=== PATIENT | female | born 1955 | race Caucasian/White ===

== ENCOUNTER 2022-12-20 04:30 | Inpatient (IN) | payer MEDICARE, OTHER ==
--- NOTE | 2022-12-20 04:43 | ED ---
General Adult HPI - General Stated complaint: Chest Pain Time Seen by Provider: 12/20/22 04:37 - History of Present Illness Initial comments: Dictation was produced using [employer] dictation software. please excuse any grammatical, word or spelling errors. Chief Complaint: 67-year-old male presents emergency by with chest and shoulder pain History of Present Illness: 59-year-old female presents emergency department with chest pressure and shoulder pain. States it feels he gets more shoulder radiates to her chest. She states as a dull ache. States it is her associated with clamminess. Denies any cardiac history. She does report cardiac history in her family. No associated shortness of breath. Patient does have history of tobacco use. Arrived via EMS. The ROS documented in this emergency department record has been reviewed and confirmed by me. Those systems with pertinent positive or negative responses have been documented in the HPI. All other systems are other negative and/or noncontributory. - Related Data Allergies Allergy/AdvReac Type Severity Reaction Status Date / Time No Known Allergies Allergy Verified 12/20/22 04:57 Review of Systems ROS Statement: Those systems with pertinent positive or pertinent negative responses have been documented in the HPI. ROS Other: All systems not noted in ROS Statement are negative. General Exam - General Exam Comments Initial Comments: PHYSICAL EXAM: General Impression: Alert and oriented x3, not in acute distress HEENT: Normocephalic atraumatic, extra-ocular movements intact, pupils equal and reactive to light bilaterally, mucous membranes moist. Cardiovascular: Heart regular rate and rhythm Chest: Able to complete full sentences, no retractions, no tachypnea Abdomen: abdomen soft, non-tender, non-distended, no organomegaly Musculoskeletal: Pulses present and equal in all extremities, no peripheral edema Motor: no focal deficits noted Neurological: CN II-XII grossly intact, no focal motor or sensory deficits noted Skin: Intact with no visualized rashes Psych: Normal affect and mood Course Vital Signs 12/20/22 04:34 Temperature 97.8 F Pulse Rate 107 H Respiratory 20 Rate Blood Pressure 128/93 O2 Sat by Pulse 95 Oximetry - Reevaluation(s) Reevaluation #1: 12/20/22 05:04 Clinical presentation and EKG suspicious for myocardial infarction. EKG was reviewed by on-call cardiology, Dr. Tubbs who is agreeable with Manager Image activation. EKG Findings - EKG Comments: EKG Findings:: My EKG interpretation: Ventricular rate 105, sinus tachycardia,. 162, QRS 144, QTc 382. No AR prolongation, no QTC prolongation. No old EKG for comparison. There does appear to be [place] and ST elevations in lead 3 and aVF. EKG is suspicious for ST segment elevation in my in the setting of widened QRS Medical Decision Making - Medical Decision Making Was pt. sent in by a medical professional or institution ([facility] [employer], urgent care, hospital, or detention...) When possible be specific @ -No Did you speak to anyone other than the patient for history (EMS, parent, family, police, friend...)? What history was obtained from this source @ -EMS Did you review nursing and triage notes (agree or disagree)? Why? @ -I reviewed and agree with nursing and triage notes Were old charts reviewed (outside hosp., previous admission, EMS record, old EKG, old radiological studies, urgent care reports/EKG's, detention records)? Report findings @ -No old charts were reviewed Differential Diagnosis (chest pain, altered mental status, abdominal pain women, abdominal pain men, vaginal bleeding, musculoskeletal, weakness, fever, dyspnea, syncope, headache, dizziness, GI bleed, back pain, seizure, CVA, palpatations, mental health)? @ -Differential Chest Pain: Stable Angina, Unstable Angina, STEMI, NSTEMI Aortic Dissection, Pneumothorax, Musculoskeletal, Esophageal Spasm GERD, Cholecystitis, Pancreatitis, Zoster, this is not meant to be an all-inclusive list. EKG interpreted by me (3pts min.). @ -See above X-rays interpreted by me (1pt min.). @ -no acute processes CT interpreted by me (1pt min.). @ -None done U/S interpreted by me (1pt. min.). @ -None done What testing was considered but not performed or refused? (CT, X-rays, U/S, labs)? Why? @ -None What meds were considered but not given or refused? Why? @ -None Did you discuss the management of the patient with other professionals (professionals i.e. [facility] [employer], lab, RT, psych nurse, social studies teacher, lead database administrator, teacher, optics technical officer, rn case management)? Give summary @ -EKG was discussed with on-call cardiology as described above Was smoking cessation discussed for >3mins.? @ -No Was critical care preformed (if so, how long)? @ -yes, 33 minutes Were there social determinants of health that impacted care today? How? (Homelessness, low income, unemployed, alcoholism, drug addiction, transportation, low edu. Level, literacy, decrease access to med. care, retirement, rehab)? @ -No Was there de-escalation of care discussed even if they declined (Discuss DNR or withdrawal of care, Hospice)? DNR status @ -No What co-morbidities impacted this encounter? (DM, HTN, Smoking, COPD, CAD, Cancer, CVA, ARF, Chemo, Hep., AIDS, mental health diagnosis, sleep apnea, morbid obesity)? @ -None Was patient admitted / discharged? Hospital course, mention meds given and route, prescriptions, significant lab abnormalities, going to OR and other pertinent info. @ -67-year-old female presents to the emergency department for chest pain. Vital signs upon arrival shows mild tachycardia. Glucose presentation consistent with ST segment elevation MS. EKG was discussed with cardiology. 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 She is given aspirin and heparin. Undiagnosed new problem with uncertain prognosis? @ -No Drug Therapy requiring intensive monitoring for toxicity (Heparin, Nitro, Insulin, Cardizem)? @ -No Were any procedures done? @ -No Diagnosis/symptom? Acute, or Chronic, or Acute on Chronic? Uncomplicated (without systemic symptoms) or Complicated (systemic symptoms)? @ -1. Chest pain Side effects of treatment? @ -No Exacerbation, Progression, or Severe Exacerbation? @ -No Poses a threat to life or bodily function? How? (Chest pain, USA, MS, pneumonia, PE, COPD, DKA, ARF, appy, cholecystitis, CVA, Diverticulitis, Homicidal, Suicidal, threat to staff... and all critical care pts) @ -yes - Lab Data Result diagrams: 12/20/22 04:56 12/20/22 04:56 Lab Results 12/20/22 12/20/22 12/20/22 Range/Units 04:56 04:56 04:56 WBC 9.9 (3.8-10.6) k/uL RBC 5.56 H (3.80-5.40) m/uL Hgb 15.3 (11.4-16.0) gm/dL Hct 48.3 H (34.0-46.0) % MCV 86.9 (80.0-100.0) fL MCH 27.5 (25.0-35.0) pg MCHC 31.6 (31.0-37.0) g/dL RDW 14.5 (11.5-15.5) % Plt Count 266 (150-450) k/uL MPV 7.9 Neutrophils % 84 % Lymphocytes % 10 % Monocytes % 4 % Eosinophils % 2 % Basophils % 0 % Neutrophils # 8.3 H (1.3-7.7) k/uL Lymphocytes # 1.0 (1.0-4.8) k/uL Monocytes # 0.4 (0-1.0) k/uL Eosinophils # 0.2 (0-0.7) k/uL Basophils # 0.0 (0-0.2) k/uL PT 9.9 (9.0-12.0) sec INR 0.9 (<1.2) APTT 22.6 (22.0-30.0) sec Sodium 137 (137-145) mmol/L Potassium 4.4 (3.5-5.1) mmol/L Chloride 105 (98-107) mmol/L Carbon Dioxide 20 L (22-30) mmol/L Anion Gap 12 mmol/L BUN 15 (7-17) mg/dL Creatinine 1.09 H (0.52-1.04) mg/dL Est GFR (CKD-EPI)AfAm 61 (>60 ml/min/1.73 sqM) Est GFR (CKD-EPI)NonAf 53 (>60 ml/min/1.73 sqM) Glucose 191 H (74-99) mg/dL POC Glucose (mg/dL) (70-110) mg/dL POC Glu Auto Detailer ID Calcium 9.3 (8.4-10.2) mg/dL Magnesium 1.8 (1.6-2.3) mg/dL Total Bilirubin 0.7 (0.2-1.3) mg/dL AST 24 (14-36) U/L ALT 17 (4-34) U/L Alkaline Phosphatase 103 (38-126) U/L Troponin I (0.000-0.034) ng/mL Total Protein 7.3 (6.3-8.2) g/dL Albumin 4.4 (3.5-5.0) g/dL Lipase 70 (23-300) U/L 12/20/22 12/20/22 Range/Units 04:56 05:00 WBC (3.8-10.6) k/uL RBC (3.80-5.40) m/uL Hgb (11.4-16.0) gm/dL Hct (34.0-46.0) % MCV (80.0-100.0) fL MCH (25.0-35.0) pg MCHC (31.0-37.0) g/dL RDW (11.5-15.5) % Plt Count (150-450) k/uL MPV Neutrophils % % Lymphocytes % % Monocytes % % Eosinophils % % Basophils % % Neutrophils # (1.3-7.7) k/uL Lymphocytes # (1.0-4.8) k/uL Monocytes # (0-1.0) k/uL Eosinophils # (0-0.7) k/uL Basophils # (0-0.2) k/uL PT (9.0-12.0) sec INR (<1.2) APTT (22.0-30.0) sec Sodium (137-145) mmol/L Potassium (3.5-5.1) mmol/L Chloride (98-107) mmol/L Carbon Dioxide (22-30) mmol/L Anion Gap mmol/L BUN (7-17) mg/dL Creatinine (0.52-1.04) mg/dL Est GFR (CKD-EPI)AfAm (>60 ml/min/1.73 sqM) Est GFR (CKD-EPI)NonAf (>60 ml/min/1.73 sqM) Glucose (74-99) mg/dL POC Glucose (mg/dL) 165 H (70-110) mg/dL POC Glu Auto Detailer ID Chandler Reina Calcium (8.4-10.2) mg/dL Magnesium (1.6-2.3) mg/dL Total Bilirubin (0.2-1.3) mg/dL AST (14-36) U/L ALT (4-34) U/L Alkaline Phosphatase (38-126) U/L Troponin I 0.156 H* (0.000-0.034) ng/mL Total Protein (6.3-8.2) g/dL Albumin (3.5-5.0) g/dL Lipase (23-300) U/L Disposition Clinical Impression: ST elevation myocardial infarction (STEMI) Disposition: ADMITTED IP TO THIS HOSP Condition: Critical Referrals: Attila Guzman Jr, [Primary Care Provider] - 1-2 days Decision Time: 05:53
[2022-12-20] MEDS ORDERED: ASPIRIN 81 MG PO STA (04:56)
[2022-12-20] MEDS ORDERED: HEPARIN SODIUM 1,000 UN/ML (10ML VL) IV PRN (04:56)
[2022-12-20] MEDS ORDERED: HEPARIN SODIUM 1,000 UN/ML (10ML VL) IV ONE (04:56)
[2022-12-20] MEDS ORDERED: HEPARIN SOD,PORK IN 0.45% NACL 25,000 UNIT in 0.45% NACL 1 250ML.BAG IV SCH (05:00)
[2022-12-20 05:02] LABS: Glucose,Whole Blood 165 mg/dL (70-110)
[2022-12-20 05:08] LABS: Basophils % (A) 0 %; Eosinophils # (A) 0.2 k/uL (0-0.7); Eosinophils % (A) 2 %; HCT 48.3 % (34.0-46.0); HGB 15.3 gm/dL (11.4-16.0); Lymphocytes % (A) 10 %; MCH 27.5 pg (25.0-35.0); MCHC 31.6 g/dL (31.0-37.0); MCV 86.9 fL (80.0-100.0); Mean Platelet Volume 7.9; Monocytes # (A) 0.4 k/uL (0-1.0); Monocytes % (A) 4 %; Neutrophils # (A) 8.3 k/uL (1.3-7.7); Neutrophils % (A) 84 %; Platelet Count 266 k/uL (150-450); RBC 5.56 m/uL (3.80-5.40); RDW 14.5 % (11.5-15.5); WBC 9.9 k/uL (3.8-10.6)
[2022-12-20 05:19] LABS: ALT 17 U/L (4-34); AST 24 U/L (14-36); African American GFR (CKD) 61 (>60 ml/min/1.73 sqM); Albumin 4.4 g/dL (3.5-5.0); Alkaline Phosphatase 103 U/L (38-126); Anion Gap 12 mmol/L; Blood Urea Nitrogen 15 mg/dL (7-17); Calcium 9.3 mg/dL (8.4-10.2); Carbon Dioxide 20 mmol/L (22-30); Chloride 105 mmol/L (98-107); Glucose 191 mg/dL (74-99); Lipase 70 U/L (23-300); Magnesium 1.8 mg/dL (1.6-2.3); Non-African American GFR(CKD) 53 (>60 ml/min/1.73 sqM); Potassium 4.4 mmol/L (3.5-5.1); Sodium 137 mmol/L (137-145); Total Bilirubin 0.7 mg/dL (0.2-1.3); Total Protein 7.3 g/dL (6.3-8.2)
[2022-12-20 05:22] LABS: INR 0.9 (<1.2); Partial Thromboplastin Time 22.6 sec (22.0-30.0); Prothrombin Time 9.9 sec (9.0-12.0)
[2022-12-20] MEDS ORDERED: fentaNYL (PF) 50 MCG/ML 2 ML AMP ONE (05:39)
[2022-12-20] MEDS ORDERED: VERAPAMIL 2.5 MG/ML 2 ML AMP ONE (05:39)
[2022-12-20] MEDS ORDERED: HEPARIN SODIUM 1,000 UN/ML (10ML VL) ONE (05:39)
[2022-12-20] MEDS ORDERED: fentaNYL (PF) 50 MCG/1 ML VIAL IVP ONE (05:47)
[2022-12-20] MEDS ORDERED: NALOXONE 0.4 MG/ML 1 ML VIAL IV PRN (05:48)
[2022-12-20] MEDS ORDERED: LIDOCAINE 1% INJ 10MG/ML (5 ML VIAL-PF) SQ ONE (05:49)
[2022-12-20] MEDS ORDERED: VERAPAMIL SYRINGE (5 MG/10 ML) INTRAARTER ONE (05:50)
[2022-12-20] MEDS ORDERED: MIDAZOLAM 2 MG/2 ML VIAL IVP ONE (05:53)
[2022-12-20] MEDS ORDERED: SODIUM CHLORIDE 0.9% 1,000 ML IV ONE (05:54)
[2022-12-20] MEDS: HEPARIN SODIUM 1,000 UN/ML (10ML VL) IV ONE ×2 (05:55→06:34)
[2022-12-20] MEDS ORDERED: HYDROmorphone 0.5 MG/0.5 ML SYRINGE IVP ONE (05:58)
[2022-12-20] MEDS ORDERED: PRASUGREL 10 MG TAB ONE (06:03)
[2022-12-20] MEDS ORDERED: PRASUGREL 10 MG TAB PO ONE (06:05)
[2022-12-20] MEDS ORDERED: IOPAMIDOL-370 100ML BTL INJ ONE ×2 (06:18→06:24)
[2022-12-20] MEDS ORDERED: RX INFO: IV CONTRAST WAS GIVEN 1 EACH MISC MISCELLANE PRN (06:41)
[2022-12-20] MEDS ORDERED: ATROPINE SULFATE 0.1 MG/ML 10ML SYRINGE IV PRN (06:41)
[2022-12-20] MEDS ORDERED: MAG HYDROX/AL HYDROX/SIMETH 30 ML CUP PO PRN (06:41)
[2022-12-20] MEDS ORDERED: ZOLPIDEM 5 MG TAB PO PRN (06:41)
[2022-12-20] MEDS ORDERED: NITROGLYCERIN SL TABS 0.4 MG TAB SUBLINGUAL PRN (06:41)
[2022-12-20] MEDS ORDERED: SODIUM CHLORIDE 0.9% 1,000 ML in EMPTY BAG 1 BAG IV SCH (06:45)
--- NOTE | 2022-12-20 06:50 | P.CRDCN ---
History of Present Illness Consult date: 12/20/22 History of present illness: History of Present Illness: The patient is a 67-year-old female who presents to the emergency room with left shoulder discomfort with radiation to the chest, and nausea. Her symptoms started at 6:00 PM yesterday and persisted throughout the night. In the emergency room she was noted to have left bundle branch block of unknown duration. No old EKG was available. Patient has been having shoulder discomfort on and off for a few weeks according to her, not activity related. She is not active physically. She has a history of hypertension and chronic tobacco use and recently has been complaining for cough from lisinopril. She denies any prior history of myocardial infarction or congestive heart failure. She has no history of PND, orthopnea or peripheral edema. She denies any dizziness, palpitations or syncope. She has no recent cardiac workup. Medications: Lisinopril, metoprolol 50 mg daily Review of Systems: Respiratory: She has a history of dyspnea and chronic tobacco use GI: She had the nausea today but not on a regular basis : No hematuria or dysuria. Nervous System: No stroke or seizure. Physical Examination: 67-year-old female, alert and oriented obese, evaluated in the cardiac catheterization laboratory,Blood pressure 160/100, Heart rate 112 Head: Normocephalic. Eyes: Sclerae nonicteric. Neck: Good carotid upstroke, no bruit, no jugular venous distention. Lungs: Clear to auscultation. Heart: Regular rate and rhythm, S1-S2, no S3, no rub. Systolic ejection murmur. Abdomen: Soft nontender, positive bowel sounds no organomegaly. Extremities: No edema, intact distal pulses. Labs: Hemoglobin 15.3, BUN 15, creatinine 1.09, potassium 4.4, troponin 0.156 EKG: Sinus mechanism with left bundle branch block Impression: 1. Acute left shoulder discomfort with left bundle branch block of unknown duration with mild troponin elevation insistent with non-STEMI 2. Chronic tobacco use 3. Hypertension 4. And obesity Plan: 1. Proceed with emergent cardiac catheterization, the risks and the complications were discussed with the patient 2. Obtain an echocardiogram with Doppler 3. Depending on her progress and the results of the testing further recommendations will be made 4. The procedure as well as the risks and the complications were discussed with the patient 5. Thank you for this consult we will follow with you Past Medical History Past Medical History: Hypertension Additional Past Medical History / Comment(s): hypothyroid disorder History of Any Multi-Drug Resistant Organisms: None Reported Past Surgical History: No Surgical Hx Reported Past Psychological History: Anxiety, Depression Smoking Status: Current every day smoker Past Alcohol Use History: Occasional Past Drug Use History: None Reported Medications and Allergies Allergies Allergy/AdvReac Type Severity Reaction Status Date / Time No Known Allergies Allergy Verified 12/20/22 04:57 Physical Exam Vitals: Vital Signs Temp Pulse Resp BP Pulse Ox 12/20/22 05:19 107 H 20 133/89 98 12/20/22 05:13 112 H 20 160/107 97 12/20/22 05:08 110 H 20 115/95 99 12/20/22 05:02 117 H 20 120/94 98 12/20/22 04:34 97.8 F 107 H 20 128/93 95 Intake and Output 12/19/22 12/19/22 12/20/22 14:59 22:59 06:59 Intake Total 350 Balance 350 Intake: IV 350 Other: Weight 102.058 kg Results 12/20/22 04:56 12/20/22 04:56 Cardiac Enzymes 12/20/22 12/20/22 Range/Units 04:56 04:56 AST 24 (14-36) U/L Troponin I 0.156 H* (0.000-0.034) ng/mL Coagulation 12/20/22 Range/Units 04:56 PT 9.9 (9.0-12.0) sec APTT 22.6 (22.0-30.0) sec CBC 12/20/22 Range/Units 04:56 WBC 9.9 (3.8-10.6) k/uL RBC 5.56 H (3.80-5.40) m/uL Hgb 15.3 (11.4-16.0) gm/dL Hct 48.3 H (34.0-46.0) % Plt Count 266 (150-450) k/uL Comprehensive Metabolic Panel 12/20/22 Range/Units 04:56 Sodium 137 (137-145) mmol/L Potassium 4.4 (3.5-5.1) mmol/L Chloride 105 (98-107) mmol/L Carbon Dioxide 20 L (22-30) mmol/L BUN 15 (7-17) mg/dL Creatinine 1.09 H (0.52-1.04) mg/dL Glucose 191 H (74-99) mg/dL Calcium 9.3 (8.4-10.2) mg/dL AST 24 (14-36) U/L ALT 17 (4-34) U/L Alkaline Phosphatase 103 (38-126) U/L Total Protein 7.3 (6.3-8.2) g/dL Albumin 4.4 (3.5-5.0) g/dL Current Medications Generic Name Dose Route Start Last Admin Trade Name Freq PRN Reason Stop Dose Admin Al Hydroxide/Mg Hydroxide 30 ml 12/20/22 06:41 Mag Hydrox/Al Hydrox/Simeth 30 Ml Cup PO Q4HR PRN Heartburn Aspirin 81 mg 12/20/22 09:00 Aspirin 81 Mg PO DAILY YANCY Atorvastatin Calcium 80 mg 12/20/22 21:00 Atorvastatin 80 Mg Tab PO HS YANCY Atropine Sulfate 0.5 mg 12/20/22 06:41 Atropine Sulfate 0.1 Mg/Ml 10ml Syringe IV ONCE PRN Symptomatic Bradycardia Dapagliflozin 10 mg 12/20/22 09:00 Dapagliflozin Propanediol 10 Mg Tablet PO DAILY [facility]1983 Heparin Sodium (Porcine) 0 unit 12/20/22 04:56 Heparin Sodium 1,000 Un/Ml (10ml Vl) IV PER PROTOCOL PRN Low PTT Protocol Heparin Sodium/Sodium Chloride 250 mls @ 10.002 mls/hr 12/20/22 05:00 12/20/22 05:01 25,000 unit/ Sodium Chloride IV 12 units/kg/hr .Q24H YANCY 12.247 mls/hr Administration Protocol 9.8 UNITS/KG/HR Sodium Chloride 1,000 ml/ IV 1,000 mls @ 102.058 mls/hr 12/20/22 06:45 Solution IV 12/20/22 09:46 .Q9H48M YANCY 1 ML/KG/HR Losartan Potassium 50 mg 12/20/22 09:00 Losartan 50 Mg Tab PO DAILY [facility]1983 Metoprolol Tartrate 25 mg 12/20/22 09:00 Metoprolol Tartrate 25 Mg Tab PO BID [facility]1983 Miscellaneous Information 1 each 12/20/22 06:41 Rx Info: Iv Contrast Was Given 1 Each Misc MISCELLANE 12/22/22 06:42 DAILY PRN Per Protocol Naloxone HCl 0.2 mg 12/20/22 05:48 Naloxone 0.4 Mg/Ml 1 Ml Vial IV Q2M PRN Opioid Reversal Nitroglycerin 0.4 mg 12/20/22 06:41 Nitroglycerin Sl Tabs 0.4 Mg Tab SUBLINGUAL Q5M PRN Chest Pain Prasugrel 10 mg 12/21/22 09:00 Prasugrel 10 Mg Tab PO DAILY [facility] Protocol Spironolactone 25 mg 12/20/22 09:00 Spironolactone 25 Mg Tab PO DAILY [facility] Zolpidem Tartrate 5 mg 12/20/22 06:41 Zolpidem 5 Mg Tab PO HS PRN Insomnia Intake and Output 12/19/22 12/19/22 12/20/22 14:59 22:59 06:59 Intake Total 350 Balance 350 Intake: IV 350 Other: Weight 102.058 kg Patient Weight 12/20/22 06:59 Weight 102.058 kg 12/20/22 04:56 12/20/22 04:56
--- NOTE | 2022-12-20 06:59 | P.CARDCATH ---
Date of Procedure: 12/20/22 Description of Procedure: Cardiac Catheterization: The patient is a 67-year-old female with a history of chronic tobacco use and hypertension who presented with symptoms of shoulder discomfort with left bundle branch block of unknown duration. She had mild troponin elevation. Recommendations were made regarding cardiac catheterization, the risks and the complications were discussed with the patient who is in full understanding and agreement. 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 Using Xylocaine Anesthesia and Seldinger technique, a 6-Rwandan sheath was introduced in the right radial artery . Subsequently, selective coronary angiography was performed using a 5-Rwandan 3.5 bend Gio catheter. Multiple views of the coronary artery including hemiaxial views were obtained. The 5-Rwandan pigtail catheter was used to cross the aortic valve and LVEDP was calculated. PCI: After removing the catheters a 6-[place]an EBU 3.75 guiding catheter was introduced into system, after cannulating the left main a 0.014 BMW J-wire was positioned in the distal LAD subsequently a 2.5 x 12 mm Treck was advanced into inflation at 8 nolan were done, after removing the balloon a Spinelab [place] eye intravascular ultrasound catheter was introduced and images were obtained, subsequently a 3.0 x 38 mm Xience erlinda point stent was advanced and deployed at 16 nolan. After removing the balloon and the wire images were obtained and revealed stable successful stenting. Following that, catheter and sheath were removed. Hemostasis was obtained with deployment of TR band . There was no immediate complication. Patient was returned to room in stable condition. Of note, the patient received a total of 6000 units of intravenous heparin as well as intra- arterial verapamil. Her ACT was followed. She received a loading dose of oral Effient. Her shoulder discomfort improved the end of the procedure. Findings: Left main: This is a large size vessel, bifurcating into LAD and left circumflex, the distal left main has 20% plaque LAD: This is a large-size vessel, reaching to the apex, the proximal LAD has a long tubular lesion with stenosis up to 95%, the mid LAD has a 50%, the rest of the vessel has no high-grade stenosis Left circumflex: This is a nondominant vessel, giving rise to a large obtuse marginal branch, the left circumflex is diffusely diseased with an area of stenosis up to 30% RCA: This is a dominant vessel, moderate in caliber diffusely diseased in the proximal and midsegment. The distal segment prior to the bifurcation has 90% stenosis and subsequently the vessel is totally occluded. Collaterals there is collaterals from the LAD system to the right PDA Left Ventriculogram: Not performed Hemodynamics: There was no gradient across the aortic valve, LVEDP was 26-30 mmHg Conclusion: 1. 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 Critical stenosis in the proximal LAD in a long segment 3. Mild to moderate disease in the left circumflex 4. Collaterals to the right PDA 5. Successful stenting of the proximal LAD with reduction of stenosis from 95% to 0% with intravascular ultrasound imaging Recommendations: The patient will continue on aspirin and Effient for 1 year with no interruption, aggressive coronary risks modification will be initiated in addition to guideline treatment. Depending on her symptoms the decision would be made regarding the need to undergo revascularization of the chronically occluded RCA. The findings and the recommendations were discussed with the patient and the family and they were in full understanding and agreement. Duration of sedation is 40 minutes.
--- NOTE | 2022-12-20 07:09 | XR ---
EXAMINATION TYPE: XR chest 1V portable DATE OF EXAM: 12/20/2022 5:07 AM COMPARISON: None TECHNIQUE: XR chest 1V portable Frontal view of the chest. CLINICAL INDICATION:Female, 67 years old with history of Chest Pain; FINDINGS: Lungs/Pleura: There is no evidence of pleural effusion, focal consolidation, or pneumothorax. Pulmonary vascularity: Pulmonary vascular congestion. Heart/mediastinum: Cardiomediastinal silhouette is enlarged and stable. Musculoskeletal: No acute osseous pathology. IMPRESSION: Cardiomegaly and mild pulmonary vascular congestion. Correlate with BNP for congestive heart failure.
[2022-12-20] MEDS: ONDANSETRON 4 MG/2 ML VIAL IVP PRN ×2 (07:22→12:10)
--- NOTE | 2022-12-20 08:15 | P.PN ---
Subjective Progress Note Date: 12/20/22 Principal diagnosis: Acute coronary syndrome The patient is a 67-year-old female patient was admitted to the hospital with acute coronary syndrome presented as a chest discomfort and EKG showing new LBBB. She underwent an emergent heart catheterization and was found to have chr onic total occlusion of the RCA and severe disease involving the LAD which was stented. 12/20/2022 The patient was seen and evaluated this morning. She is chest pain-free. She is slightly tachycardic. She is on dual antiplatelet therapy along with high intensity statin along with anti-ischemic medication. The echocardiogram just performed with following that to assess ejection fraction. Meanwhile the right radial site appeared to be soft and nontender. The examination is remarkable for stable vital signs was mild sinus tachycardia and diminished breathing sounds bilaterally and no lower extremity edema noted Assessment Acute coronary syndrome Status post PCI of the LAD Multiple comorbid conditions Mild sinus tachycardia Plan DC IV fluid Restart the patient back on her blood pressure medications including the current dose of losartan and beta matt Continue dual antiplatelet therapy Continue high intensity statin Follow-up on the echocardiogram Objective - Vital Signs Vital signs: Vital Signs Temp 97.8 F 12/20/22 04:34 Pulse 107 H 12/20/22 05:19 Resp 20 12/20/22 05:19 BP 133/89 12/20/22 05:19 Pulse Ox 98 12/20/22 05:19 FiO2 Intake & Output 12/19/22 12/20/22 12/20/22 18:59 06:59 18:59 Intake Total 350 Balance 350 Weight 102.058 kg Intake: IV 350 - Labs CBC & Chem 7: 12/20/22 04:56 12/20/22 04:56 Labs: Abnormal Lab Results - Last 24 Hours (Table) 12/20/22 12/20/22 12/20/22 Range/Units 04:56 04:56 04:56 RBC 5.56 H (3.80-5.40) m/uL Hct 48.3 H (34.0-46.0) % Neutrophils # 8.3 H (1.3-7.7) k/uL Carbon Dioxide 20 L (22-30) mmol/L Creatinine 1.09 H (0.52-1.04) mg/dL Glucose 191 H (74-99) mg/dL POC Glucose (mg/dL) (70-110) mg/dL Troponin I 0.156 H* (0.000-0.034) ng/mL 12/20/22 Range/Units 05:00 RBC (3.80-5.40) m/uL Hct (34.0-46.0) % Neutrophils # (1.3-7.7) k/uL Carbon Dioxide (22-30) mmol/L Creatinine (0.52-1.04) mg/dL Glucose (74-99) mg/dL POC Glucose (mg/dL) 165 H (70-110) mg/dL Troponin I (0.000-0.034) ng/mL
[2022-12-20] MEDS: SPIRONOLACTONE 25 MG TAB PO SCH (08:23)
[2022-12-20] MEDS: METOPROLOL TARTRATE 25 MG TAB PO SCH ×2 (08:23→20:26)
[2022-12-20] MEDS: LOSARTAN 50 MG TAB PO SCH (08:23)
[2022-12-20] MEDS ORDERED: DAPAGLIFLOZIN PROPANEDIOL 10 MG TABLET PO SCH (09:00)
[2022-12-20 10:49] VITALS: BMI 36.3
--- NOTE | 2022-12-20 10:54 | CA ---
Transthoracic Echo Report Name: Princess Gamez Age: 67 Gender: F : 1955 Exam Date: 12/20/2022 07:33 Exam Location: [facility] Ht (in): 66 Wt (lb): 225 Ordering Physician: Deidra Tubbs MD ([id number]) Attending/Referring Phys: [employer] Sujey Boone RDCS Procedure CPT: Indications: ACS Cardiac Hx: stent Technical Quality: Technically difficult study Contrast 1: Lumason Total Dose (mL): 3 Contrast 2: Total Dose (mL): MEASUREMENTS (Male / Female) Normal Values 2D ECHO LV Diastolic Diameter PLAX 4.7 cm 4.2 - 5.9 / 3.9 - 5.3 cm LV Systolic Diameter PLAX 3.3 cm IVS Diastolic Thickness 1.3 cm 0.6 - 1.0 / 0.6 - 0.9 cm LVPW Diastolic Thickness 1.4 cm 0.6 - 1.0 / 0.6 - 0.9 cm LV Relative Wall Thickness 0.6 RV Internal Dim ED PLAX 3.3 cm LA Systolic Diameter LX 4.3 cm 3.0 - 4.0 / 2.7 - 3.8 cm LV Diastolic Volume MOD BP 63.5 cm??? 67 - 155 / 56 - 104 cm??? LV Systolic Volume MOD BP 42.5 cm??? 22 - 58 / 19 - 49 cm??? LV Ejection Fraction MOD BP 33.0 % >= 55 % LV Diastolic Volume MOD 4C 49.9 cm??? LV Systolic Volume MOD 4C 35.1 cm??? LV Ejection Fraction MOD 4C 29.8 % LV Diastolic Length 4C 6.8 cm LV Systolic Length 4C 6.7 cm LV Diastolic Volume MOD 2C 73.6 cm??? LV Systolic Volume MOD 2C 50.5 cm??? LV Ejection Fraction MOD 2C 31.3 % LV Diastolic Length 2C 7.7 cm LV Systolic Length 2C 7.0 cm LA Volume 84.5 cm??? 18 - 58 / 22 - 52 cm??? M-MODE Aortic Root Diameter MM 2.8 cm MV E Point Septal Separation 1.2 cm AV Cusp Separation MM 1.8 cm DOPPLER AV Peak Velocity 150.2 cm/s AV Peak Gradient 9.0 mmHg MV Area PHT 7.1 cm??? Mitral E Point Velocity 105.3 cm/s Mitral A Point Velocity 92.7 cm/s Mitral E to A Ratio 1.1 MV Deceleration Time 106.8 ms MV E' Velocity 5.9 cm/s Mitral E to MV E' Ratio 17.8 TR Peak Velocity 359.6 cm/s TR Peak Gradient 51.7 mmHg Right Ventricular Systolic Press 56.1 mmHg PV Peak Velocity 102.8 cm/s PV Peak Gradient 4.2 mmHg FINDINGS Left Ventricle Left ventricular ejection fraction is estimated at 25-30 %. Mildly increased septal wall thickness. Moderately increased posterior wall thickness. Moderately decreased left ventricular ejection fraction. Global left ventricular hypokinesis. Right Ventricle Mild right ventricular dilatation. Severe pulmonary hypertension. Right ventricular systolic pressure estimated at 56 mm hg. Right Atrium Normal right atrial size. Left Atrium Mildly increased left atrial diameter. Severely increased left atrial volume. Mildly increased left atrial area. Mitral Valve Structurally normal mitral valve. Mild mitral regurgitation. Aortic Valve Trileaflet aortic valve. No aortic valve stenosis or regurgitation. Tricuspid Valve Structurally normal tricuspid valve. Mild tricuspid regurgitation. Pulmonic Valve Structurally normal pulmonic valve. Trace to mild pulmonic regurgitation. Pericardium Normal pericardium. No pericardial effusion. Aorta Normal size aortic root and proximal ascending aorta. CONCLUSIONS Severe LV dysfunction Enlarged left atrium Prominent posterior pericardial stripe Previewed by: Dr. Kemal Perez MD (Electronically Signed) Final Date: 20 December 2022 10:54
[2022-12-20 11:15] LABS: Chol/HDL Ratio 5.87 Ratio; LDL Cholesterol,Calculated 217.2 mg/dL (0.0-131.0)
--- NOTE | 2022-12-20 14:29 | P.HPIM ---
History of Present Illness H&P Date: 12/20/22 Chief Complaint: Chest pain This is a 67-year-old female with past medical history significant for CAD, hypertension, morbid obesity, ongoing nicotine dependence, hypothyroidism, anxiety, depression and multiple other medical issues presented to the ER with complaints of "achy" chest pressure, accompanied by nausea, diaphoresis, radiation to left shoulder throughout the night. Reports nonexertional fluctuating shoulder discomfort over the last few weeks.EKG reporting sinus rhythm, incomplete left bundle branch block. Troponins 0.156, 0.821, 12.3. Hemoglobin 15.3, platelets 266, potassium 4.4, BUN 15, creatinine 1.09, magnesium 1.8. Triglycerides 117, cholesterol 290, LDL 217, HDL 49.4. Proceed with emergent cardiac catheterization , reporting chronic occluded distal RCA with diffuse disease, critical stenosis in the proximal LAD, mild to moderate disease of the left circumflex, collaterals to the right PDA, successful stenting of the proximal LAD. Chest x-ray reported cardiomegaly and mild pulmonary vascular congestion. Echo reported severe LV dysfunction, EF 25-30%, global left ventricular hypokinesis, enlarged left atrium, prominent posterior pericardial stripe. Sinus tachycardia earlier this morning, received beta matt currently sinus rhythm. Positive nausea and vomiting. Review of Systems ROS Statement: Those systems with pertinent positive or pertinent negative responses have been documented in the HPI. ROS Other: All systems not noted in ROS Statement are negative. Past Medical History Past Medical History: Coronary Artery Disease (CAD), Hypertension Additional Past Medical History / Comment(s): hypothyroid disorder History of Any Multi-Drug Resistant Organisms: None Reported Past Surgical History: No Surgical Hx Reported Past Psychological History: Anxiety, Depression Smoking Status: Current every day smoker Past Alcohol Use History: Occasional Past Drug Use History: None Reported Medications and Allergies Home Medications Medication Instructions Recorded Confirmed Type Levothyroxine Sodium [Synthroid] 125 mcg PO DAILY 12/20/22 12/20/22 History Metoprolol Succinate (ER) [Toprol 50 mg PO DAILY@1900 12/20/22 12/20/22 History Xl] lisinopriL [Zestril] 5 mg PO DAILY@1300 12/20/22 12/20/22 History Allergies Allergy/AdvReac Type Severity Reaction Status Date / Time No Known Allergies Allergy Verified 12/20/22 09:11 Physical Exam Vitals: Vital Signs Temp Pulse Resp BP Pulse Ox FiO2 12/20/22 10:15 72 21 130/72 95 12/20/22 10:00 69 21 131/69 96 12/20/22 09:45 66 19 131/69 96 12/20/22 09:30 73 21 149/76 96 12/20/22 09:15 86 24 150/95 94 L 12/20/22 09:00 89 16 143/96 95 12/20/22 08:45 92 22 130/71 96 12/20/22 08:30 101 H 16 157/88 96 12/20/22 08:15 98 16 157/101 97 12/20/22 08:00 97.9 F 96 12 153/107 95 12/20/22 07:45 93 25 H 149/98 99 100 12/20/22 07:30 98 27 H 133/94 99 100 12/20/22 07:15 93 27 H 108/79 93 L 100 12/20/22 07:00 104 H 16 90/68 84 L 100 12/20/22 05:19 107 H 20 133/89 98 12/20/22 05:13 112 H 20 160/107 97 12/20/22 05:08 110 H 20 115/95 99 12/20/22 05:02 117 H 20 120/94 98 12/20/22 04:34 97.8 F 107 H 20 128/93 95 Intake and Output 12/19/22 12/20/22 12/20/22 22:59 06:59 14:59 Intake Total 350 900 Output Total 0 Balance 350 900 Intake: IV 350 Intake, IV Titration 750 Amount Sodium Chloride 0.9% 1, 750 000 ml @ 0 mls/hr [facility][id number] Oral 150 Output: Urine 0 Other: Weight 102.058 kg 102.058 kg PHYSICAL EXAM: VITAL SIGNS: [As above] GENERAL: Sitting up in bed, no acute distress HEENT: Normocephalic, atraumatic, Conjunctivae normal. eyes normal. NECK: Supple, No JVD. CARDIOVASCULAR: S1, S2 regular.No murmur RESPIRATION: Unlabored, equal air entry, bilateral bases diminished. ABDOMEN: Soft, nontender . No guarding. no masses palpable. +BS LEGS: No edema. no swelling PSYCHIATRY: Alert and oriented X3, mood and affect normal. NERVOUS SYSTEM: Cranial N 2-12 grossly normal. No focal deficits. Strength and sensation grossly intact.. Skin: Warm and dry, no rash Results CBC & Chem 7: 12/20/22 04:56 12/20/22 04:56 Labs: Abnormal Lab Results - Last 24 Hours (Table) 12/20/22 12/20/22 12/20/22 Range/Units 04:56 04:56 04:56 RBC 5.56 H (3.80-5.40) m/uL Hct 48.3 H (34.0-46.0) % Neutrophils # 8.3 H (1.3-7.7) k/uL Carbon Dioxide 20 L (22-30) mmol/L Creatinine 1.09 H (0.52-1.04) mg/dL Glucose 191 H (74-99) mg/dL POC Glucose (mg/dL) (70-110) mg/dL Troponin I 0.156 H* (0.000-0.034) ng/mL Cholesterol (0.00-200.00) mg/dL LDL Cholesterol, Calc (0.0-131.0) mg/dL 12/20/22 12/20/22 12/20/22 Range/Units 05:00 07:08 07:08 RBC (3.80-5.40) m/uL Hct (34.0-46.0) % Neutrophils # (1.3-7.7) k/uL Carbon Dioxide (22-30) mmol/L Creatinine (0.52-1.04) mg/dL Glucose (74-99) mg/dL POC Glucose (mg/dL) 165 H (70-110) mg/dL Troponin I 0.821 H* (0.000-0.034) ng/mL Cholesterol 290.00 H (0.00-200.00) mg/dL LDL Cholesterol, Calc 217.2 H (0.0-131.0) mg/dL 12/20/22 Range/Units 10:02 RBC (3.80-5.40) m/uL Hct (34.0-46.0) % Neutrophils # (1.3-7.7) k/uL Carbon Dioxide (22-30) mmol/L Creatinine (0.52-1.04) mg/dL Glucose (74-99) mg/dL POC Glucose (mg/dL) (70-110) mg/dL Troponin I 12.300 H* (0.000-0.034) ng/mL Cholesterol (0.00-200.00) mg/dL LDL Cholesterol, Calc (0.0-131.0) mg/dL Assessment and Plan Assessment: Acute coronary syndrome, status post PCI of LAD Severe LV dysfunction, EF 25-30% Sinus tachycardia CAD Hypertension Hypothyroidism Morbid obesity, BMI 36.3 Ongoing nicotine dependence Anxiety Depression Plan: Continue on current medication regime ,monitoring and symptomatic treatment. Continues on Dual antiplatelet therapy, statin, and beta matt. Maintain Zofran for nausea/emesis. Aggressive pulmonary toileting, smoking cessation reinforced. PPI ordered for GI prophylaxis. The impression and plan of care has been dictated as directed. : I performed a history and examination of this patient, discussed the same with the dictator. I agree with the dictator's note ,documented as a scribe. Any ad ditional findings or plans will be noted.
[2022-12-20] MEDS ORDERED: DEXTROSE 50% SYRINGE 50 ML IVP PRN ×2 (14:30)
[2022-12-20] MEDS ORDERED: PANTOPRAZOLE 40 MG/10 ML VIAL IVP SCH (15:00)
[2022-12-20] MEDS: INSULIN ASPART (NovoLOG) 100 UNIT/ML VIAL SQ SCH ×2 (16:28→20:20)
[2022-12-20 16:29] LABS: Glucose,Whole Blood 115 mg/dL (70-110)
[2022-12-20] MEDS ORDERED: LORATADINE 10 MG TAB PO PRN (18:28)
[2022-12-20 20:20] LABS: Glucose,Whole Blood 106 mg/dL (70-110)
[2022-12-20] MEDS: ATORVASTATIN 80 MG TAB PO SCH (20:26)
[2022-12-21 06:30] LABS: Glucose,Whole Blood 112 mg/dL (70-110)
[2022-12-21] MEDS: INSULIN ASPART (NovoLOG) 100 UNIT/ML VIAL SQ SCH ×4 (06:39→20:49)
--- NOTE | 2022-12-21 08:23 | P.PN ---
Subjective Progress Note Date: 12/21/22 Principal diagnosis: Acute coronary syndrome The patient is a 67-year-old female patient was admitted to the hospital with acute coronary syndrome presented as a chest discomfort and EKG showing new LBBB. She underwent an emergent heart catheterization and was found to have chr onic total occlusion of the RCA and severe disease involving the LAD which was stented. 12/20/2022 The patient was seen and evaluated this morning. She is chest pain-free. She is slightly tachycardic. She is on dual antiplatelet therapy along with high intensity statin along with anti-ischemic medication. The echocardiogram just performed with following that to assess ejection fraction. Meanwhile the right radial site appeared to be soft and nontender. December 212022 The patient was seen and evaluated this morning. She is asymptomatic. She is hemodynamically stable. The echo showed impaired LV function was EF around 30% with global hypokinesia. Currently she is on maximize medical treatment including dual antiplatelet therapy and high intensity statin as well as beta matt and ARB and Aldactone. From the cardiac standpoint of view, the patient can be transferred to the floor. No arrhythmia has detected so far within the last 24 hours. The examination is remarkable for stable vital signs was mild sinus tachycardia and diminished breathing sounds bilaterally and no lower extremity edema noted Assessment Acute coronary syndrome Status post PCI of the LAD Multiple comorbid conditions Mild sinus tachycardia Plan Continue the current medical regimen The patient can be transferred out of the ICU Follow-up with the patient Objective - Vital Signs Vital signs: Vital Signs Temp 98.0 F 12/21/22 00:00 Pulse 66 12/21/22 07:00 Resp 23 12/21/22 07:00 BP 126/67 12/21/22 07:00 Pulse Ox 94 L 12/21/22 07:00 FiO2 100 12/20/22 07:45 Intake & Output 12/20/22 12/21/22 12/21/22 18:59 06:59 18:59 Intake Total 1450 200 Output Total 400 700 Balance 1050 -500 Weight 102.058 kg 103.8 kg Intake: Intake, IV Titration 750 Amount Sodium Chloride 0.9% 1, 750 000 ml @ 0 mls/hr IV .[facility] Rx#:[id number] Oral 700 200 Output: Urine 400 700 Other: # Voids 0 0 - Labs CBC & Chem 7: 12/20/22 04:56 12/20/22 04:56 Labs: Abnormal Lab Results - Last 24 Hours (Table) 12/20/22 12/20/22 12/20/22 Range/Units 07:08 10:02 16:27 POC Glucose (mg/dL) 115 H (70-110) mg/dL Troponin I 12.300 H* (0.000-0.034) ng/mL Cholesterol 290.00 H (0.00-200.00) mg/dL LDL Cholesterol, Calc 217.2 H (0.0-131.0) mg/dL 12/21/22 Range/Units 06:29 POC Glucose (mg/dL) 112 H (70-110) mg/dL Troponin I (0.000-0.034) ng/mL Cholesterol (0.00-200.00) mg/dL LDL Cholesterol, Calc (0.0-131.0) mg/dL
[2022-12-21 08:24] LABS: African American GFR (CKD) 65 (>60 ml/min/1.73 sqM); Anion Gap 5 mmol/L; Blood Urea Nitrogen 13 mg/dL (7-17); Calcium 8.4 mg/dL (8.4-10.2); Carbon Dioxide 25 mmol/L (22-30); Chloride 103 mmol/L (98-107); Glucose 145 mg/dL (74-99); Non-African American GFR(CKD) 56 (>60 ml/min/1.73 sqM); Potassium 4.1 mmol/L (3.5-5.1); Sodium 133 mmol/L (137-145)
[2022-12-21] MEDS: SPIRONOLACTONE 25 MG TAB PO SCH (08:41)
[2022-12-21] MEDS: PANTOPRAZOLE 40 MG TABLET PO SCH (08:42)
[2022-12-21] MEDS: PRASUGREL 10 MG TAB PO SCH (08:42)
[2022-12-21] MEDS: METOPROLOL TARTRATE 25 MG TAB PO SCH ×2 (08:42→20:54)
[2022-12-21] MEDS: LOSARTAN 50 MG TAB PO SCH (08:44)
[2022-12-21] MEDS: ASPIRIN 81 MG PO SCH (08:44)
--- NOTE | 2022-12-21 09:00 | P.PN ---
Subjective 12/20/22 This is a 67-year-old female with past medical history significant for CAD, hypertension, morbid obesity, ongoing nicotine dependence, hypothyroidism, anxiety, depression and multiple other medical issues presented to the ER with complaints of "achy" chest pressure, accompanied by nausea, diaphoresis, radiation to left shoulder throughout the night. Reports nonexertional fluctuating shoulder discomfort over the last few weeks.EKG reporting sinus rhythm, incomplete left bundle branch block. Troponins 0.156, 0.821, 12.3. Hemoglobin 15.3, platelets 266, potassium 4.4, BUN 15, creatinine 1.09, magnesium 1.8. Triglycerides 117, cholesterol 290, LDL 217, HDL 49.4. Proceed with emergent cardiac catheterization , reporting chronic occluded distal RCA with diffuse disease, critical stenosis in the proximal LAD, mild to moderate disease of the left circumflex, collaterals to the right PDA, successful stenting of the proximal LAD. Chest x-ray reported cardiomegaly and mild pulmonary vascular congestion. Echo reported severe LV dysfunction, EF 25-30%, global left ventricular hypokinesis, enlarged left atrium, prominent posterior pericardial stripe. Sinus tachycardia earlier this morning, received beta matt currently sinus rhythm. Positive nausea and vomiting. 12/21/2022: Patient is status post STEMI. She has a known history of CAD, hypertension and obesity the kidney dependence and multiple other medical issues. She is status post stenting of the LAD. Cardiology of just downgraded her to the stepdown unit. She had significant nausea and vomiting yesterday but this has improved. She has also severe LV dysfunction with an EF of 25-30% and global left ventricular hypokinesis. This likely all from her recent myocardial infarction. Cardiology is hopefully this will improve with time. Vital signs are stable. She's afebrile. Chemistries this morning are essentially normal exception of a glucose 145. Patient denies any chest pains pressures shortness of breath nausea or vomiting this morning. Objective - Vital Signs Vital signs: Vital Signs Temp 98.0 F 12/21/22 00:00 Pulse 73 12/21/22 08:30 Resp 23 12/21/22 08:30 BP 135/63 12/21/22 08:30 Pulse Ox 96 12/21/22 08:30 FiO2 100 12/20/22 07:45 Intake & Output 12/20/22 12/21/22 12/21/22 18:59 06:59 18:59 Intake Total 1450 200 Output Total 400 700 Balance 1050 -500 Weight 102.058 kg 103.8 kg Intake: Intake, IV Titration 750 Amount Sodium Chloride 0.9% 1, 750 000 ml @ 0 mls/hr IV .[facility] Rx#:[id number] Oral 700 200 Output: Urine 400 700 Other: # Voids 0 0 - Exam General: The patient is an obese female, awake and alert, in no distress, and does not appear acutely ill. Neck: The neck is supple, there is no thyromegaly, lymphadenopathy, tenderness or JVD. Cardiovascular: S1S2 is normal, There is a regular rate and rhythm. No murmur, rub or gallop is appreciated. Respiratory: Lungs are clear to auscultation bilaterally, respirations are non-labored, breath sounds are equal. Gastrointestinal: Soft, non-distended, non-tender abdomen without masses or organomegaly noted. There is no rebound or guarding present. Bowel sounds are unremarkable. Musculoskeletal: Normal ROM, no tenderness, There is no pedal edema. There is no calf tenderness or swelling. No cords were appreciated. Neurological: CN II-XII intact, there are no obvious motor or sensory deficits. Coordination appears grossly intact. Speech is normal. Skin: Skin is warm and dry and no rashes or lesions are noted. - Labs CBC & Chem 7: 12/20/22 04:56 12/21/22 07:55 Labs: Abnormal Lab Results - Last 24 Hours (Table) 12/20/22 12/20/22 12/20/22 Range/Units 07:08 10:02 16:27 Sodium (137-145) mmol/L Glucose (74-99) mg/dL POC Glucose (mg/dL) 115 H (70-110) mg/dL Troponin I 12.300 H* (0.000-0.034) ng/mL Cholesterol 290.00 H (0.00-200.00) mg/dL LDL Cholesterol, Calc 217.2 H (0.0-131.0) mg/dL 12/21/22 12/21/22 Range/Units 06:29 07:55 Sodium 133 L (137-145) mmol/L Glucose 145 H (74-99) mg/dL POC Glucose (mg/dL) 112 H (70-110) mg/dL Troponin I (0.000-0.034) ng/mL Cholesterol (0.00-200.00) mg/dL LDL Cholesterol, Calc (0.0-131.0) mg/dL Assessment and Plan (1) ST elevation myocardial infarction (STEMI) Current Visit: Yes Status: Acute Code(s): I21.3 - ST ELEVATION (STEMI) MYOCARDIAL INFARCTION OF UNSP SITE SNOMED Code(s): 27314111 (2) Type 2 diabetes mellitus with other circulatory complications Current Visit: Yes Status: Acute Code(s): E11.59 - TYPE 2 DIABETES MELLITUS WITH OTH CIRCULATORY COMPLICATIONS SNOMED Code(s): 64543194 (3) Type 2 diabetes mellitus with other specified complication Current Visit: Yes Status: Acute Code(s): E11.69 - TYPE 2 DIABETES MELLITUS WITH OTHER SPECIFIED COMPLICATION SNOMED Code(s): 96284851 (4) Mixed hyperlipidemia Current Visit: Yes Status: Acute Code(s): E78.2 - MIXED HYPERLIPIDEMIA SNOMED Code(s): 624546385 (5) CAD (coronary artery disease) Current Visit: Yes Status: Acute Code(s): I25.10 - ATHSCL HEART DISEASE OF [place] CORONARY ARTERY W/O ANG PCTRS SNOMED Code(s): 98088032 (6) Acquired hypothyroidism Current Visit: Yes Status: Acute Code(s): E03.9 - HYPOTHYROIDISM, UNSPECIFIED SNOMED Code(s): 371397288 (7) Morbid obesity Current Visit: Yes Status: Acute Code(s): E66.01 - MORBID (SEVERE) OBESITY DUE TO EXCESS CALORIES SNOMED Code(s): 169539523 Plan: Patient appears improved today. Cardiology recommendations were noted. I discussed the case personally with cardiology, Dr. Hernández. We will check a TSH along with a hemoglobin A1c. She'll continue on her current medications orders. We'll repeat labs in am. She'll be reevaluated next 24 hours. Probably discharge in the next 48 hours.
[2022-12-21] MEDS: LEVOTHYROXINE 125 MCG TAB PO SCH (09:24)
[2022-12-21 11:29] LABS: T4, Free (Free Thyroxine) 1.63 ng/dL (0.78-2.19)
[2022-12-21 11:36] LABS: Glucose,Whole Blood 118 mg/dL (70-110)
[2022-12-21 16:21] LABS: Glucose,Whole Blood 101 mg/dL (70-110)
[2022-12-21 17:53] VITALS: RESP 18
[2022-12-21 20:04] LABS: Glucose,Whole Blood 98 mg/dL (70-110)
[2022-12-21] MEDS: ATORVASTATIN 80 MG TAB PO SCH (20:54)
[2022-12-22] MEDS: LEVOTHYROXINE 125 MCG TAB PO SCH (05:42)
[2022-12-22 06:24] LABS: Glucose,Whole Blood 115 mg/dL (70-110)
[2022-12-22] MEDS: INSULIN ASPART (NovoLOG) 100 UNIT/ML VIAL SQ SCH ×4 (06:28→20:26)
--- NOTE | 2022-12-22 06:56 | P.PN ---
Subjective Progress Note Date: 12/22/22 Principal diagnosis: Acute coronary syndrome The patient is a 67-year-old female patient was admitted to the hospital with acute coronary syndrome presented as a chest discomfort and EKG showing new LBBB. She underwent an emergent heart catheterization and was found to have chr onic total occlusion of the RCA and severe disease involving the LAD which was stented. 12/20/2022 The patient was seen and evaluated this morning. She is chest pain-free. She is slightly tachycardic. She is on dual antiplatelet therapy along with high intensity statin along with anti-ischemic medication. The echocardiogram just performed with following that to assess ejection fraction. Meanwhile the right radial site appeared to be soft and nontender. December 212022 The patient was seen and evaluated this morning. She is asymptomatic. She is hemodynamically stable. The echo showed impaired LV function was EF around 30% with global hypokinesia. Currently she is on maximize medical treatment including dual antiplatelet therapy and high intensity statin as well as beta matt and ARB and Aldactone. From the cardiac standpoint of view, the patient can be transferred to the floor. No arrhythmia has detected so far within the last 24 hours. December 222022 The patient was seen and evaluated this morning. She is asymptomatic. She is a moderately stable. She is euvolemic on examination. She continues to be on dual antiplatelet therapy along with beta matt and ARB and also aldosterone and the conus. She is on maximize medical treatment at this point. From the cardiovascular standpoint of view, I would continue the current medical regimen and monitor the patient for additional 24 hours. No arrhythmia has been detected so far. The echo showed cardiomyopathy was EF around 30% with global hypokinesia. The examination is remarkable for stable vital signs was mild sinus tachycardia and diminished breathing sounds bilaterally and no lower extremity edema noted Assessment Acute coronary syndrome Status post PCI of the LAD Multiple comorbid conditions Mild sinus tachycardia Plan Continue the current medical regimen Monitor the patient for additional 24 hours Monitor for any arrhythmia Follow-up with the patient Objective - Vital Signs Vital signs: Vital Signs Temp 98.2 F 12/21/22 20:00 Pulse 71 12/22/22 04:00 Resp 18 12/22/22 04:00 BP 130/58 12/22/22 04:00 Pulse Ox 95 12/22/22 04:00 FiO2 100 12/20/22 07:45 Intake & Output 07/02/0512/21/22 12/22/22 06:59 18:59 06:59 Intake Total 231 621 8203 Output Total 700 Balance -027 055 5770 Weight 103.8 kg 102.5 kg Intake: Oral 580 630 5953 Output: Urine 700 Other: # Voids 0 1 2 - Labs CBC & Chem 7: 12/20/22 04:56 12/21/22 07:55 Labs: Abnormal Lab Results - Last 24 Hours (Table) 12/21/22 12/21/22 12/21/22 Range/Units 07:55 07:55 11:35 Sodium 133 L (137-145) mmol/L Glucose 145 H (74-99) mg/dL POC Glucose (mg/dL) 118 H (70-110) mg/dL TSH 0.379 L (0.465-4.680) mIU/L 12/22/22 Range/Units 06:22 Sodium (137-145) mmol/L Glucose (74-99) mg/dL POC Glucose (mg/dL) 115 H (70-110) mg/dL TSH (0.465-4.680) mIU/L
[2022-12-22] MEDS: METOPROLOL TARTRATE 25 MG TAB PO SCH ×2 (10:26→20:28)
[2022-12-22] MEDS: PANTOPRAZOLE 40 MG TABLET PO SCH (10:26)
[2022-12-22] MEDS: ASPIRIN 81 MG PO SCH (10:26)
[2022-12-22] MEDS: LOSARTAN 50 MG TAB PO SCH (10:26)
[2022-12-22] MEDS: SPIRONOLACTONE 25 MG TAB PO SCH (10:26)
[2022-12-22] MEDS: PRASUGREL 10 MG TAB PO SCH (10:26)
--- NOTE | 2022-12-22 11:02 | P.PN ---
Subjective 12/20/22 This is a 67-year-old female with past medical history significant for CAD, hypertension, morbid obesity, ongoing nicotine dependence, hypothyroidism, anxiety, depression and multiple other medical issues presented to the ER with complaints of "achy" chest pressure, accompanied by nausea, diaphoresis, radiation to left shoulder throughout the night. Reports nonexertional fluctuating shoulder discomfort over the last few weeks.EKG reporting sinus rhythm, incomplete left bundle branch block. Troponins 0.156, 0.821, 12.3. Hemoglobin 15.3, platelets 266, potassium 4.4, BUN 15, creatinine 1.09, magnesium 1.8. Triglycerides 117, cholesterol 290, LDL 217, HDL 49.4. Proceed with emergent cardiac catheterization , reporting chronic occluded distal RCA with diffuse disease, critical stenosis in the proximal LAD, mild to moderate disease of the left circumflex, collaterals to the right PDA, successful stenting of the proximal LAD. Chest x-ray reported cardiomegaly and mild pulmonary vascular congestion. Echo reported severe LV dysfunction, EF 25-30%, global left ventricular hypokinesis, enlarged left atrium, prominent posterior pericardial stripe. Sinus tachycardia earlier this morning, received beta matt currently sinus rhythm. Positive nausea and vomiting. 12/21/2022: Patient is status post STEMI. She has a known history of CAD, hypertension and obesity the kidney dependence and multiple other medical issues. She is status post stenting of the LAD. Cardiology of just downgraded her to the stepdown unit. She had significant nausea and vomiting yesterday but this has improved. She has also severe LV dysfunction with an EF of 25-30% and global left ventricular hypokinesis. This likely all from her recent myocardial infarction. Cardiology is hopefully this will improve with time. Vital signs are stable. She's afebrile. Chemistries this morning are essentially normal exception of a glucose 145. Patient denies any chest pains pressures shortness of breath nausea or vomiting this morning. 12/22/2022: Patient is status post acute myocardial infarction with the emergent heart catheterization and stenting of the proximal LAD. She is without complaint this morning. She denies any chest pains pressures shortness breath nausea vomiting. She has not had a bowel movement. No trouble urinating. V itals are stable, she is afebrile. Laboratory studies are pending today. Yesterday her TSH is slightly 0.379 with a free T4 1 0.63. Hemoglobin A1c was 5.8. Cardiology note was reviewed from today. Patient has a known cardiac myopathy with ejection fraction around 30% with global hypokinesia from the myocardial infarction. She remains on atorvastatin, aspirin, losartan, metoprolol, spironolactone, for her coronary disease. She is on levothyroxine 125 g daily. Objective - Vital Signs Vital signs: Vital Signs Temp 98.6 F 12/22/22 08:00 Pulse 71 12/22/22 08:00 Resp 18 12/22/22 08:00 BP 131/81 12/22/22 08:00 Pulse Ox 95 12/22/22 08:00 FiO2 100 12/20/22 07:45 Intake & Output 12/21/22 12/22/22 12/22/22 18:59 06:59 18:59 Intake Total 540 1080 180 Balance 540 1080 180 Weight 102.5 kg Intake: Oral 540 1080 180 Other: # Voids 1 2 - Exam General: The patient is an obese female, awake and alert, in no distress, and does not appear acutely ill. Neck: The neck is supple, there is no thyromegaly, lymphadenopathy, tenderness or JVD. Cardiovascular: S1S2 is normal, There is a regular rate and rhythm. No murmur, rub or gallop is appreciated. Respiratory: Lungs are clear to auscultation bilaterally, respirations are non-labored, breath sounds are equal. Gastrointestinal: Soft, non-distended, non-tender abdomen without masses or organomegaly noted. There is no rebound or guarding present. Bowel sounds are unremarkable. Musculoskeletal: Normal ROM, no tenderness, There is no pedal edema. There is no calf tenderness or swelling. No cords were appreciated. Neurological: CN II-XII intact, there are no obvious motor or sensory deficits. Coordination appears grossly intact. Speech is normal. Skin: Skin is warm and dry and no rashes or lesions are noted. - Labs CBC & Chem 7: 12/20/22 04:56 12/21/22 07:55 Labs: Abnormal Lab Results - Last 24 Hours (Table) 12/21/22 12/22/22 Range/Units 11:35 06:22 POC Glucose (mg/dL) 118 H 115 H (70-110) mg/dL Assessment and Plan (1) ST elevation myocardial infarction (STEMI) Current Visit: Yes Status: Acute Code(s): I21.3 - ST ELEVATION (STEMI) MYOCARDIAL INFARCTION OF UNSP SITE SNOMED Code(s): 14303682 (2) Type 2 diabetes mellitus with other circulatory complications Current Visit: Yes Status: Acute Code(s): E11.59 - TYPE 2 DIABETES MELLITUS WITH OTH CIRCULATORY COMPLICATIONS SNOMED Code(s): 87618391 (3) Type 2 diabetes mellitus with other specified complication Current Visit: Yes Status: Acute Code(s): E11.69 - TYPE 2 DIABETES MELLITUS WITH OTHER SPECIFIED COMPLICATION SNOMED Code(s): 02244775 (4) Mixed hyperlipidemia Current Visit: Yes Status: Acute Code(s): E78.2 - MIXED HYPERLIPIDEMIA SNOMED Code(s): 800346091 (5) CAD (coronary artery disease) Current Visit: Yes Status: Acute Code(s): I25.10 - ATHSCL HEART DISEASE OF [place] CORONARY ARTERY W/O ANG PCTRS SNOMED Code(s): 96525539 (6) Acquired hypothyroidism Current Visit: Yes Status: Acute Code(s): E03.9 - HYPOTHYROIDISM, UNSPECIFIED SNOMED Code(s): 742858889 (7) Morbid obesity Current Visit: Yes Status: Acute Code(s): E66.01 - MORBID (SEVERE) OBESITY DUE TO EXCESS CALORIES SNOMED Code(s): 620645068 Plan: Patient appears improved today. Cardiology recommendations were noted. Besides TSH, I'll reduce her levothyroxine to 112 g daily. We'll plan outpatient recheck in 6 weeks. She'll continue on her current medications orders. We'll repeat labs in am. She'll be reevaluated next 24 hours. Probably discharge in the next 24 hours.
[2022-12-22 11:29] LABS: Glucose,Whole Blood 107 mg/dL (70-110)
[2022-12-22 12:58] LABS: Basophils % (A) 0 %; Eosinophils # (A) 0.2 k/uL (0-0.7); Eosinophils % (A) 2 %; HCT 38.9 % (34.0-46.0); HGB 12.5 gm/dL (11.4-16.0); Lymphocytes # (A) 1.4 k/uL (1.0-4.8); Lymphocytes % (A) 18 %; MCHC 32.2 g/dL (31.0-37.0); MCV 86.8 fL (80.0-100.0); Mean Platelet Volume 8.3; Monocytes # (A) 0.5 k/uL (0-1.0); Monocytes % (A) 6 %; Neutrophils # (A) 5.6 k/uL (1.3-7.7); Neutrophils % (A) 72 %; Platelet Count 232 k/uL (150-450); RBC 4.48 m/uL (3.80-5.40); RDW 14.4 % (11.5-15.5); WBC 7.7 k/uL (3.8-10.6)
[2022-12-22 13:11] LABS: African American GFR (CKD) 66 (>60 ml/min/1.73 sqM); Anion Gap 8 mmol/L; Blood Urea Nitrogen 13 mg/dL (7-17); Calcium 8.9 mg/dL (8.4-10.2); Carbon Dioxide 28 mmol/L (22-30); Chloride 100 mmol/L (98-107); Glucose 103 mg/dL (74-99); Non-African American GFR(CKD) 57 (>60 ml/min/1.73 sqM); Potassium 4.5 mmol/L (3.5-5.1); Sodium 136 mmol/L (137-145)
[2022-12-22 16:42] LABS: Glucose,Whole Blood 107 mg/dL (70-110)
[2022-12-22 20:18] LABS: Glucose,Whole Blood 110 mg/dL (70-110)
[2022-12-22] MEDS: ATORVASTATIN 80 MG TAB PO SCH (20:28)
[2022-12-23 06:11] LABS: Glucose,Whole Blood 118 mg/dL (70-110)
[2022-12-23] MEDS: LEVOTHYROXINE 112 MCG TAB PO SCH (06:16)
[2022-12-23] MEDS: INSULIN ASPART (NovoLOG) 100 UNIT/ML VIAL SQ SCH ×4 (06:18→21:05)
[2022-12-23 08:34] LABS: African American GFR (CKD) 74 (>60 ml/min/1.73 sqM); Anion Gap 8 mmol/L; Blood Urea Nitrogen 10 mg/dL (7-17); Calcium 8.7 mg/dL (8.4-10.2); Carbon Dioxide 25 mmol/L (22-30); Chloride 104 mmol/L (98-107); Glucose 134 mg/dL (74-99); Non-African American GFR(CKD) 64 (>60 ml/min/1.73 sqM); Sodium 137 mmol/L (137-145)
[2022-12-23] MEDS: SPIRONOLACTONE 25 MG TAB PO SCH (08:37)
[2022-12-23] MEDS: LOSARTAN 50 MG TAB PO SCH (08:37)
[2022-12-23] MEDS: PRASUGREL 10 MG TAB PO SCH (08:37)
[2022-12-23] MEDS: METOPROLOL TARTRATE 25 MG TAB PO SCH (08:38)
[2022-12-23] MEDS: ASPIRIN 81 MG PO SCH (08:38)
[2022-12-23] MEDS: PANTOPRAZOLE 40 MG TABLET PO SCH (08:38)
--- NOTE | 2022-12-23 09:02 | P.PN ---
Subjective Progress Note Date: 12/23/22 History of Present Illness: The patient is a 67-year-old female who presented with an acute myocardial inf arction, underwent stenting of the LAD and had evidence of chronically occluded RCA. She had evidence of severely impaired systolic function by echocardiography. She is mildly nauseated but otherwise denies any chest discomfort, dizziness or palpitations. She feels unsteady at times. She has no further chest or shoulder discomfort. She has no peripheral edema. She has no PND or orthopnea. Medications: Aspirin, Lipitor 80 mg daily, Synthroid, losartan 50 mg daily, metoprolol 25 mg twice a day, Aldactone 25 mg daily, Effient 10 mg daily Review of Systems: Respiratory: Mild dyspnea on exertion GI: No vomiting, she has mild nausea . No history of peptic ulcer disease. No recent GI bleed. : No hematuria or dysuria. Nervous System: No stroke or seizure. Physical Examination: 67-year-old female, alert and oriented no apparent distress,Blood pressure 136/70, Heart rate 70 Head: Normocephalic. Eyes: Sclerae nonicteric. Neck: Good carotid upstroke, no bruit, no jugular venous distention. Lungs: Clear to auscultation. Heart: Regular rate and rhythm, S1-S2, no S3, no rub. Systolic ejection murmur. Abdomen: Soft nontender, positive bowel sounds no organomegaly. Extremities: No edema, intact distal pulses. Labs: Potassium 4.0, BUN 10 and creatinine 0.92 Impression: 1. Status post stenting of the LAD in the setting of a myocardial infarction 2. Left bundle branch block of unknown duration 3. Chronically occluded RCA 4. Severe cardiomyopathy Plan: 1. Increased beta matt 2. Obtain an echocardiogram with Doppler 3. If EF remains below 35 proceed with LifeVest 4. Increase physical activity 5. Depending on the results of the testing probably discharged home soon, discussed with the patient. Objective - Vital Signs Vital signs: Vital Signs Temp 97.9 F 12/22/22 20:00 Pulse 70 12/23/22 04:00 Resp 18 12/23/22 04:00 BP 136/75 12/23/22 04:00 Pulse Ox 96 12/23/22 04:00 FiO2 100 12/20/22 07:45 Intake & Output 12/22/22 12/23/22 12/23/22 18:59 06:59 18:59 Intake Total 540 540 180 Balance 540 540 180 Intake: Oral 540 540 180 Other: # Voids 1 - Labs CBC & Chem 7: 12/22/22 12:11 12/23/22 07:50 Labs: Abnormal Lab Results - Last 24 Hours (Table) 12/22/22 12/23/22 12/23/22 Range/Units 12:11 06:10 07:50 Sodium 136 L (137-145) mmol/L Glucose 103 H 134 H (74-99) mg/dL POC Glucose (mg/dL) 118 H (70-110) mg/dL
[2022-12-23 11:44] LABS: Glucose,Whole Blood 118 mg/dL (70-110)
--- NOTE | 2022-12-23 13:17 | P.PN ---
Subjective Progress Note Date: 12/23/22 H&P Date: 12/20/22 Chief Complaint: Chest pain This is a 67-year-old female with past medical history significant for CAD, hypertension, morbid obesity, ongoing nicotine dependence, hypothyroidism, anxiety, depression and multiple other medical issues presented to the ER with complaints of "achy" chest pressure, accompanied by nausea, diaphoresis, radiati on to left shoulder throughout the night. Reports nonexertional fluctuating shoulder discomfort over the last few weeks.EKG reporting sinus rhythm, incomplete left bundle branch block. Troponins 0.156, 0.821, 12.3. Hemoglobin 15.3, platelets 266, potassium 4.4, BUN 15, creatinine 1.09, magnesium 1.8. Triglycerides 117, cholesterol 290, LDL 217, HDL 49.4. Proceed with emergent cardiac catheterization , reporting chronic occluded distal RCA with diffuse disease, critical stenosis in the proximal LAD, mild to moderate disease of the left circumflex, collaterals to the right PDA, successful stenting of the proximal LAD. Chest x-ray reported cardiomegaly and mild pulmonary vascular congestion. Echo reported severe LV dysfunction, EF 25-30%, global left ventricular hypokinesis, enlarged left atrium, prominent posterior pericardial stripe. Sinus tachycardia earlier this morning, received beta matt currently sinus rhythm. Positive nausea and vomiting. 12/21/2022: Patient is status post STEMI. She has a known history of CAD, hypertension and obesity the kidney dependence and multiple other medical issues. She is status post stenting of the LAD. Cardiology of just downgraded her to the stepdown unit. She had significant nausea and vomiting yesterday but this has improved. She has also severe LV dysfunction with an EF of 25-30% and global left ventricular hypokinesis. This likely all from her recent myocardial infarction. Cardiology is hopefully this will improve with time. Vital signs are stable. She's afebrile. Chemistries this morning are essentially normal exception of a glucose 145. Patient denies any chest pains pressures shortness of breath nausea or vomiting this morning. 12/22/2022: Patient is status post acute myocardial infarction with the emergent heart catheterization and stenting of the proximal LAD. She is without complaint this morning. She denies any chest pains pressures shortness breath nausea vomiting. She has not had a bowel movement. No trouble urinating. Vitals are stable, she is afebrile. Laboratory studies are pending today. Yesterday her TSH is slightly 0.379 with a free T4 1 0.63. Hemoglobin A1c was 5.8. Cardiology note was reviewed from today. Patient has a known cardiac myopathy with ejection fraction around 30% with global hypokinesia from the myocardial infarction. She remains on atorvastatin, aspirin, losartan, metoprolol, spironolactone, for her coronary disease. She is on levothyroxine 125 g daily. 12/24/2019 Repeat echo pending. Beta matt increased. denies chest pain, palpitations or shortness of breath. Objective - Vital Signs Vital signs: Vital Signs Temp 98.5 F 12/23/22 12:06 Pulse 69 12/23/22 12:06 Resp 18 12/23/22 12:06 BP 143/82 12/23/22 12:06 Pulse Ox 98 12/23/22 12:06 FiO2 100 12/20/22 07:45 Intake & Output 12/22/22 12/23/22 12/23/22 18:59 06:59 18:59 Intake Total 540 540 180 Balance 540 540 180 Intake: Intake, IV Titration 0 Amount Sodium Chloride 0.9% 1, 0 000 ml @ 0 mls/hr IV .[employer] [facility] Rx#:[id number] Oral 540 540 180 Other: # Voids 1 - Exam PHYSICAL EXAM: VITAL SIGNS: [As above] GENERAL: Alert and oriented 3, Sitting up in bed, no acute distress HEENT: Normocephalic, atraumatic, Conjunctivae normal. eyes normal. NECK: Supple, No JVD. CARDIOVASCULAR: S1, S2 regular. Systolic murmur. RESPIRATION: Unlabored, equal air entry, bilateral bases diminished. ABDOMEN: Soft, nontender . No guarding. no masses palpable. +BS LEGS: No edema. no swelling. No calf tenderness. NERVOUS SYSTEM: Cranial N 2-12 grossly normal. No focal deficits. Strength and sensation grossly intact. Skin: Warm and dry, no rash - Labs CBC & Chem 7: 12/22/22 12:11 12/23/22 07:50 Labs: Abnormal Lab Results - Last 24 Hours (Table) 12/22/22 12/23/22 12/23/22 Range/Units 12:11 06:10 07:50 Sodium 136 L (137-145) mmol/L Glucose 103 H 134 H (74-99) mg/dL POC Glucose (mg/dL) 118 H (70-110) mg/dL 12/23/22 Range/Units 11:43 Sodium (137-145) mmol/L Glucose (74-99) mg/dL POC Glucose (mg/dL) 118 H (70-110) mg/dL Assessment and Plan Assessment: Acute coronary syndrome, status post PCI of LAD Severe LV dysfunction, EF 25-30% Sinus tachycardia CAD Hypertension Hypothyroidism, TSH 0.379, free T4 1.63, levothyroxine dose decreased, further follow-up outpatient in clinic. Morbid obesity, BMI 36.3 Ongoing nicotine dependence Anxiety Depression Plan: Continue on current medication regime ,monitoring and symptomatic treatment. Repeat echo pending; potential LifeVest if EF remains below 35 as per cardiology. Aggressive pulmonary toileting, smoking cessation reinforced. Discharge planning in progress, potentially for tomorrow pending final DC recommendations and clearance per cardiology. The impression and plan of care has been dictated as directed. : I performed a history and examination of this patient, discussed the same with the dictator. I agree with the dictator's note ,documented as a scribe. Any additional findings or plans will be noted.
[2022-12-23 16:15] LABS: Glucose,Whole Blood 98 mg/dL (70-110)
[2022-12-23 20:13] LABS: Glucose,Whole Blood 109 mg/dL (70-110)
[2022-12-23] MEDS: ATORVASTATIN 80 MG TAB PO SCH (21:09)
[2022-12-23] MEDS: METOPROLOL TARTRATE 50 MG TAB PO SCH (21:09)
[2022-12-24 06:11] LABS: Glucose,Whole Blood 112 mg/dL (70-110)
[2022-12-24] MEDS: INSULIN ASPART (NovoLOG) 100 UNIT/ML VIAL SQ SCH ×2 (06:23→13:26)
[2022-12-24] MEDS: LEVOTHYROXINE 112 MCG TAB PO SCH (06:26)
[2022-12-24] MEDS: SPIRONOLACTONE 25 MG TAB PO SCH (08:35)
[2022-12-24] MEDS: LOSARTAN 50 MG TAB PO SCH (08:35)
[2022-12-24] MEDS: PANTOPRAZOLE 40 MG TABLET PO SCH (08:35)
[2022-12-24] MEDS: METOPROLOL TARTRATE 50 MG TAB PO SCH (08:36)
[2022-12-24] MEDS: PRASUGREL 10 MG TAB PO SCH (08:36)
[2022-12-24] MEDS: ASPIRIN 81 MG PO SCH (08:36)
[2022-12-24 08:52] VITALS: BP 132/74; TEMP 98.2
[2022-12-24 11:41] LABS: Glucose,Whole Blood 103 mg/dL (70-110)
--- NOTE | 2022-12-24 13:05 | P.DS ---
Providers Date of admission: 12/20/22 05:48 Expected date of discharge: 12/24/22 Attending physician: Abraham Tucker Consults: 12/20/22 05:48 Consult Physician Stat Consulting Provider: Deidra Tubbs Consult Reason/Comments: stemi Do you want consulting provider notified?: Already Contacted 12/20/22 06:42 Consult Physician Routine Consulting Provider: Cardiology Mojgan Consult Reason/Comments: Post Interventional Patient Do you want consulting provider notified?: Already Contacted Primary care physician: [facility] Course: Final Diagnoses: Acute coronary syndrome, status post PCI of LAD Severe LV dysfunction, EF 25-30%, repeat echo verbal report EF 36%, no LifeVest as per cardiology Sinus tachycardia CAD Hypertension Hypothyroidism, TSH 0.379, free T4 1.63, levothyroxine dose decreased, further follow-up outpatient in clinic. Morbid obesity, BMI 36.3 Ongoing nicotine dependence Anxiety Depression Hospital course:This is a 67-year-old female with past medical history significant for CAD, hypertension, morbid obesity, ongoing nicotine dependence, hypothyroidism, anxiety, depression and multiple other medical issues presented to the ER with complaints of "achy" chest pressure, accompanied by nausea, diaphoresis, radiation to left shoulder throughout the night. Reports nonexertional fluctuating shoulder discomfort over the last few weeks.EKG reporting sinus rhythm, incomplete left bundle branch block. Troponins 0.156, 0.821, 12.3. Hemoglobin 15.3, platelets 266, potassium 4.4, BUN 15, creatinine 1.09, magnesium 1.8. Triglycerides 117, cholesterol 290, LDL 217, HDL 49.4. Proceed with emergent cardiac catheterization , reporting chronic occluded distal RCA with diffuse disease, critical stenosis in the proximal LAD, mild to moderate disease of the left circumflex, collaterals to the right PDA, successful stenting of the proximal LAD. Chest x-ray reported cardiomegaly and mild pulmonary vascular congestion. Echo reported severe LV dysfunction, EF 25- 30%, global left ventricular hypokinesis, enlarged left atrium, prominent posterior pericardial stripe. Sinus tachycardia earlier this morning, received beta matt currently sinus rhythm. Positive nausea and vomiting. 12/21/2022: Patient is status post STEMI. She has a known history of CAD, hypertension and obesity the kidney dependence and multiple other medical issues. She is status post stenting of the LAD. Cardiology of just downgraded her to the stepdown unit. She had significant nausea and vomiting yesterday but this has improved. She has also severe LV dysfunction with an EF of 25-30% and global left ventricular hypokinesis. This likely all from her recent myocardial infarction. Cardiology is hopefully this will improve with time. Vital signs are stable. She's afebrile. Chemistries this morning are essentially normal exception of a glucose 145. Patient denies any chest pains pressures shortness of breath nausea or vomiting this morning. 12/22/2022: Patient is status post acute myocardial infarction with the emergent heart catheterization and stenting of the proximal LAD. She is without complaint this morning. She denies any chest pains pressures shortness breath nausea vomiting. She has not had a bowel movement. No trouble urinating. Vitals are stable, she is afebrile. Laboratory studies are pending today. Yesterday her TSH is slightly 0.379 with a free T4 1 0.63. Hemoglobin A1c was 5.8. Cardiology note was reviewed from today. Patient has a known cardiac myopathy with ejection fraction around 30% with global hypokinesia from the myocardial infarction. She remains on atorvastatin, aspirin, losartan, metoprolol, spironolactone, for her coronary disease. She is on levothyroxine 125 g daily. 12/24/2019 Repeat echo pending. Beta matt increased. denies chest pain, palpitations or shortness of breath. Repeat echo verbal report EF 36%, no LifeVest as per cardiology. Patient has been cleared by cardiology for discharge. Significant clinical improvement. Denies chest pain, palpitations or shortness of breath. Patient will be discharged home today in stable condition with guarded prognosis. The impression and plan of care has been dictated as directed. : I performed a history and examination of this patient, discussed the same with the dictator. I agree with the dictator's note ,documented as a scribe. Any additional findings or plans will be noted. Patient Condition at Discharge: Stable Plan - Discharge Summary New Discharge Prescriptions: New Spironolactone [Aldactone] 25 mg PO DAILY #30 tab Loratadine [Claritin] 5 mg PO Q12HR PRN tab PRN Reason: Sinus Symptoms Atorvastatin [Lipitor] 80 mg PO HS #30 tab Pantoprazole [Protonix] 40 mg PO DAILY #30 tab Levothyroxine Sodium [Synthroid] 112 mcg PO DAILY@0630 #30 tab Aspirin 81 mg PO DAILY #30 tab Losartan [Cozaar] 50 mg PO DAILY #30 tab Prasugrel [Effient] 10 mg PO DAILY #30 tab Metoprolol Tartrate [Lopressor] 50 mg PO BID #60 tab Nitroglycerin Sl Tabs [Nitrostat] 0.4 mg SUBLINGUAL Q5M PRN #100 tab PRN Reason: Chest Pain Discontinued Levothyroxine Sodium [Synthroid] 125 mcg PO DAILY Metoprolol Succinate (ER) [Toprol Xl] 50 mg PO DAILY@1900 lisinopriL [Zestril] 5 mg PO DAILY@1300 Discharge Medication List Aspirin 81 mg PO DAILY #30 tab 12/24/22 [Rx] Atorvastatin [Lipitor] 80 mg PO HS #30 tab 12/24/22 [Rx] Levothyroxine Sodium [Synthroid] 112 mcg PO DAILY@0630 #30 tab 12/24/22 [Rx] Loratadine [Claritin] 5 mg PO Q12HR PRN tab 12/24/22 [Rx] Losartan [Cozaar] 50 mg PO DAILY #30 tab 12/24/22 [Rx] Metoprolol Tartrate [Lopressor] 50 mg PO BID #60 tab 12/24/22 [Rx] Nitroglycerin Sl Tabs [Nitrostat] 0.4 mg SUBLINGUAL Q5M PRN #100 tab 12/24/22 [Rx] Pantoprazole [Protonix] 40 mg PO DAILY #30 tab 12/24/22 [Rx] Prasugrel [Effient] 10 mg PO DAILY #30 tab 12/24/22 [Rx] Spironolactone [Aldactone] 25 mg PO DAILY #30 tab 12/24/22 [Rx] Follow up Appointment(s)/Referral(s): Deidra Tubbs MD [STAFF PHYSICIAN] - 1 Week (Receiver/Laborer. The office will call you with post hospital follow up appointment.) Attila Guzman Jr, DO [Primary Care Provider] - 01/01/23 8:30 am Patient Instructions/Handouts: *Surgery [facility] - After Heart Catheterization - Pressurised Container Filler Instructions
[2022-12-24] MEDS ORDERED: CLOPIDOGREL 75 MG TAB PO STA (13:12)
--- NOTE | 2022-12-24 13:20 | P.PN ---
Subjective Progress Note Date: 12/24/22 HISTORY OF PRESENT ILLNESS: This is 67-year-old female who presented to the hospital with acute myocardial infarction. She underwent cardiac catheterization with stenting of the LAD and evidence of chronically occluded RCA. He examined this point the bedside. She is had no further episodes of chest pain or pressure. She denies any shortness of breath. Preliminary repeat echocardiogram reveals ejection fraction of 36% per veterinary laboratory technician. PHYSICAL EXAM: VITAL SIGNS: Reviewed. GENERAL: Well-developed in no acute distress. NECK: Supple. No JVD or thyromegaly LUNGS: Respirations even and unlabored. Lungs essentially clear to auscultation bilaterally. HEART: Regular rate and rhythm. S1 and S2 heard. Systolic murmur noted. EXTREMITIES: Normal range of motion. No clubbing or cyanosis. Peripheral pulses intact. No lower extremity edema ASSESSMENT: Acute coronary syndrome, status post stenting of LAD Left bundle branch block of unknown duration Chronically occluded RCA Ischemic cardiomyopathy PLAN: Continue dual antiplatelet therapy Continue high-intensity statin No life vest required at the time of discharge per Dr. Tubbs as patient's EF has improved She is stable for discharge home today from a cardiac standpoint Nurse practitioner note has been reviewed by physician. Signing provider agrees with the documented findings, assessment, and plan of care. Objective - Vital Signs Vital signs: Vital Signs Temp 98.2 F 12/24/22 08:00 Pulse 79 12/24/22 08:00 Resp 18 12/24/22 08:00 BP 132/74 12/24/22 08:00 Pulse Ox 98 12/24/22 08:00 FiO2 100 12/20/22 07:45 Intake & Output 12/23/22 12/24/22 12/24/22 18:59 06:59 18:59 Intake Total 540 180 Balance 540 180 Intake: Intake, IV Titration 0 Amount Sodium Chloride 0.9% 1, 0 000 ml @ 0 mls/hr IV .[employer] [facility] Rx#:[id number] Oral 540 180 Other: # Voids 2 - Labs CBC & Chem 7: 12/22/22 12:11 12/23/22 07:50 Labs: Abnormal Lab Results - Last 24 Hours (Table) 12/24/22 Range/Units 06:10 POC Glucose (mg/dL) 112 H (70-110) mg/dL
[2022-12-24 14:33] VITALS: PULSE 70
--- NOTE | 2022-12-24 17:39 | CA ---
Transthoracic Echo Report Name: Princess Gamez Age: 67 Gender: F : 1955 Exam Date: 12/24/2022 10:27 Exam Location: [facility] Ht (in): 66 Wt (lb): 225 Ordering Physician: Deidra Tubbs MD ([id number]) Attending/Referring Phys: Capsule Filler Denise Hamilton [facility] Procedure CPT: Indications: AL Cardiac Hx: Technical Quality: Technically difficult study Contrast 1: Lumason Total Dose (mL): 5 Contrast 2: Total Dose (mL): MEASUREMENTS (Male / Female) Normal Values 2D ECHO LV Diastolic Diameter PLAX 4.9 cm 4.2 - 5.9 / 3.9 - 5.3 cm LV Systolic Diameter PLAX 3.8 cm IVS Diastolic Thickness 1.2 cm 0.6 - 1.0 / 0.6 - 0.9 cm LVPW Diastolic Thickness 1.3 cm 0.6 - 1.0 / 0.6 - 0.9 cm LV Relative Wall Thickness 0.5 LV Diastolic Volume MOD BP 110.8 cm??? 67 - 155 / 56 - 104 cm??? LV Systolic Volume MOD BP 70.9 cm??? 22 - 58 / 19 - 49 cm??? LV Ejection Fraction MOD BP 36.1 % >= 55 % LV Cardiac Index MOD BP 1204.3 cm???/min???m??? LV Diastolic Volume MOD 4C 122.0 cm??? LV Systolic Volume MOD 4C 89.2 cm??? LV Ejection Fraction MOD 4C 26.9 % LV Cardiac Index MOD 4C 990.9 cm???/min???m??? LV Diastolic Length 4C 8.3 cm LV Systolic Length 4C 7.7 cm LV Diastolic Volume MOD 2C 97.6 cm??? LV Systolic Volume MOD 2C 52.2 cm??? LV Ejection Fraction MOD 2C 46.5 % LV Cardiac Index MOD 2C 1367.8 cm???/min???m??? LV Diastolic Length 2C 8.6 cm LV Systolic Length 2C 7.0 cm FINDINGS Left Ventricle Mildly increased septal wall thickness. Mildly increased posterior wall thickness. Mildly increased left ventricular diastolic volume. Severely increased left ventricular systolic volume. Moderately decreased left ventricular ejection fraction. Left ventricular ejection fraction is estimated at 35-40%. Hypokinetic inferior wall. Hypokinetic apical lateral wall. Right Ventricle Right Atrium Left Atrium Mitral Valve Aortic Valve Tricuspid Valve Pulmonic Valve Pericardium Aorta CONCLUSIONS Technically suboptimal study secondary to poor echo windows and poor endocardial visualization. There is ischemic cardiomyopathy with moderate LV systolic dysfunction with an ejection fraction of 35-40% secondary to prior inferior wall myocardial infarction Previewed by: Dr. David Bowens MD (Electronically Signed) Final Date: 24 December 2022 17:38
== END 2022-12-24 13:54 | disposition home or self-care (01) | DRG 247 ==
LOC: EC 04:30 → 2SICU 05:48 → 3SCARD 12-21 12:33
PROVIDERS: ADMIT Family Medicine; ATTEND Family Medicine
PROC: B240ZZ3 Ultrasonography of Single Coronary Artery, Intravascular (ICD-10-PCS; principal; 2022-12-20 05:27)
PROC: 027034Z Dilation of Coronary Artery, One Artery with Drug-eluting Intraluminal Device, Percutaneous Approach (ICD-10-PCS; principal; 2022-12-20 05:27)
PROC: 4A023N7 Measurement of Cardiac Sampling and Pressure, Left Heart, Percutaneous Approach (ICD-10-PCS; principal; 2022-12-20 05:27)
PROC: B2111ZZ Fluoroscopy of Multiple Coronary Arteries using Low Osmolar Contrast (ICD-10-PCS; principal; 2022-12-20 05:27)
DX: I21.02 ST elevation (STEMI) myocardial infarction involving left anterior descending coronary artery (principal); I44.7 Left bundle-branch block, unspecified; Z68.36 Body mass index [BMI] 36.0-36.9, adult; E03.9 Hypothyroidism, unspecified; G72.89 Other specified myopathies; F41.9 Anxiety disorder, unspecified; F32.A Depression, unspecified; I11.9 Hypertensive heart disease without heart failure; I25.82 Chronic total occlusion of coronary artery; I25.5 Ischemic cardiomyopathy; I25.10 Atherosclerotic heart disease of native coronary artery without angina pectoris; E66.01 Morbid (severe) obesity due to excess calories; E78.2 Mixed hyperlipidemia; E11.59 Type 2 diabetes mellitus with other circulatory complications; Z28.310 Unvaccinated for COVID-19; F17.200 Nicotine dependence, unspecified, uncomplicated; Z79.899 Other long term (current) drug therapy; Z79.890 Hormone replacement therapy
CPT/HCPCS: 36415; 71045; 80048; 80053; 80061; 83036; 83690; 83735; 84439; 84443; 84484; 85025; 85610; 85730; 92978; 93005; 93306; 93308; 93458; 96365; 99291

== ENCOUNTER → 2023-02-13 | Outpatient (CLI) | payer MEDICARE, OTHER ==
[2023-02-13 16:22] LABS: ALT 103 U/L (8-44); AST 84 U/L (13-35); Albumin 4.6 d/dL (3.8-4.9); Albumin/Globulin Ratio 1.92 Ratio (1.60-3.17); Alkaline Phosphatase 634 U/L (41-126); BUN/Creat Ratio 8.57 Ratio (12.00-20.00); Calcium 9.8 mg/dL (8.7-10.3); Carbon Dioxide 21.9 mmol/L (21.6-31.8); Chloride 107 mmol/L (96-109); Chol/HDL Ratio 2.59 Ratio; Globulin 2.4 d/dL (1.6-3.3); Glucose 154 mg/dL (70-110); LDL Cholesterol,Calculated 73.2 mg/dL (0.0-131.0); Potassium 4.7 mmol/L (3.5-5.5); Sodium 145 mmol/L (135-145); Total Bilirubin 0.7 mg/dL (0.3-1.2); VLDL Calculation 16.54 mg/dL (5.00-40.00)
== END | disposition home or self-care (01) ==
LOC: LABWHC1 10:13
PROVIDERS: ATTEND Internal Medicine Interventional Cardiology
DX: E78.2 Mixed hyperlipidemia (principal)
CPT/HCPCS: 36415; 80053; 80061

== ENCOUNTER → 2023-06-03 | Outpatient (CLI) | payer MEDICARE, OTHER ==
[2023-06-03 14:15] LABS: NT-Pro-B-Type Natriuretic Pept 1280 pg/mL
[2023-06-03 19:06] LABS: Chol/HDL Ratio 4.14 Ratio; LDL Cholesterol,Calculated 185.7 mg/dL (0.0-131.0); T4, Free (Free Thyroxine) 1.73 ng/dL (0.80-1.80)
== END | disposition home or self-care (01) ==
LOC: LABWHC1 12:40
PROVIDERS: ATTEND Internal Medicine Interventional Cardiology
DX: I50.22 Chronic systolic (congestive) heart failure (principal); E03.9 Hypothyroidism, unspecified; E78.2 Mixed hyperlipidemia; R60.0 Localized edema
CPT/HCPCS: 36415; 80061; 83880; 84439; 84443

== ENCOUNTER → 2023-09-19 | Outpatient (CLI) | payer MEDICARE, OTHER ==
[2023-09-19 15:41] LABS: ALT 12 U/L (8-44); AST 16 U/L (13-35); Albumin 4.3 g/dL (3.8-4.9); Albumin/Globulin Ratio 1.79 Ratio (1.60-3.17); Alkaline Phosphatase 172 U/L (41-126); Blood Urea Nitrogen 18.3 mg/dL (9.0-27.0); Carbon Dioxide 23.7 mmol/L (21.6-31.8); Chloride 106 mmol/L (96-109); Chol/HDL Ratio 3.14 Ratio; Globulin 2.4 g/dL (1.6-3.3); Glucose 106 mg/dL (70-110); LDL Cholesterol,Calculated 123.4 mg/dL (0.0-131.0); Potassium 5.1 mmol/L (3.5-5.5); Sodium 142 mmol/L (135-145); Total Bilirubin 0.3 mg/dL (0.3-1.2); Total Protein 6.7 g/dL (6.2-8.2)
== END | disposition home or self-care (01) ==
LOC: LABWHC1 11:10
PROVIDERS: ATTEND Internal Medicine Interventional Cardiology
DX: E78.2 Mixed hyperlipidemia (principal)
CPT/HCPCS: 36415; 80053; 80061

== ENCOUNTER → 2023-10-01 | Outpatient (CLI) | payer MEDICARE, OTHER ==
--- NOTE | 2023-10-03 09:31 | MM ---
Reason for Exam: Screening (asymptomatic). Patient History: Menarche at age 13. First Full-Term at age 22. Postmenopausal. Patient used Hormonal Contraceptives for 3 years. Paternal aunt had breast cancer at or over age 50. Risk Values: Celena 5 year model risk: 1.4%. NCI Lifetime model risk: 4.6%. Prior Study Comparison: No prior studies available for comparison. Tissue Density: The breasts are almost entirely fatty. Findings: Analyzed By CAD. Right breast: There is no suspicious group of microcalcifications or new suspicious mass. Left breast: There is no suspicious group of microcalcifications or new suspicious mass. Overall Assessment: Negative, BI-RAD 1 Management: Screening Mammogram of both breasts in [address] [facility] will attempt to contact patient to return for supplemental views and ultrasound if indicated. Patient should continue monthly self-breast exams. A clinical breast exam by your physician is recommended on an annual basis. This exam should not preclude additional follow-up of suspicious palpable abnormalities. Note on Celena scores and lifetime risk: 1. A Celena score greater than 3% is considered moderate risk. If this is the case, consider specialist referral to assess eligibility for a risk reducing agent. 2. If overall lifetime risk for the development of breast cancer is 20% or higher, the patient may qualify for future screening with alternating mammogram and breast MRI. Electronically signed and approved by: Tam Hedrcik DO
== END | disposition home or self-care (01) ==
LOC: RADMAMWWP 12:21
PROVIDERS: ATTEND Family Medicine
DX: Z12.31 Encounter for screening mammogram for malignant neoplasm of breast (principal); Z78.0 Asymptomatic menopausal state; Z80.3 Family history of malignant neoplasm of breast
CPT/HCPCS: 77063; 77067

== ENCOUNTER → 2023-12-11 | Outpatient (CLI) | payer MEDICARE, OTHER ==
[2023-12-11 19:30] LABS: ALT 12 U/L (8-44); AST 15 U/L (13-35); Chol/HDL Ratio 2.85 Ratio; LDL Cholesterol,Calculated 85.6 mg/dL (0.0-131.0)
== END | disposition home or self-care (01) ==
LOC: LABWHC1 12:06
PROVIDERS: ATTEND Internal Medicine Interventional Cardiology
DX: E78.2 Mixed hyperlipidemia (principal)
CPT/HCPCS: 36415; 80061; 84450; 84460

== ENCOUNTER → 2024-12-22 | Outpatient (CLI) | payer MEDICARE, OTHER ==
[2024-12-22 15:40] LABS: ALT 9 U/L (8-44); AST 40 U/L (13-35); Albumin 4.4 g/dL (3.8-4.9); Albumin/Globulin Ratio 1.47 Ratio (1.60-3.17); Alkaline Phosphatase 140 U/L (41-126); Anion Gap 14.20 mmol/L (4.00-12.00); BUN/Creat Ratio 13.50 Ratio (12.00-20.00); Blood Urea Nitrogen 16.2 mg/dL (9.0-27.0); Calcium 9.7 mg/dL (8.7-10.3); Carbon Dioxide 25.8 mmol/L (21.6-31.8); Chloride 99 mmol/L (96-109); Cholesterol 179.00 mg/dL (0.00-200.00); Globulin 3.0 g/dL (1.6-3.3); Glucose 114 mg/dL (70-110); HDL Cholesterol 49.80 mg/dL (40.00-60.00); LDL Cholesterol,Calculated 102.6 mg/dL (0.0-131.0); Potassium 4.7 mmol/L (3.5-5.5); Sodium 139 mmol/L (135-145); Total Protein 7.4 g/dL (6.2-8.2); Triglycerides 133.00 mg/dL (0.00-149.00); VLDL Calculation 26.60 mg/dL (5.00-40.00)
== END | disposition home or self-care (01) ==
LOC: LABWHC1 11:17
PROVIDERS: ATTEND Internal Medicine Interventional Cardiology
DX: I25.5 Ischemic cardiomyopathy (principal); E78.2 Mixed hyperlipidemia
CPT/HCPCS: 36415; 80053; 80061; 84443